=== PATIENT | female | born 1990 | race Two or more races ===

== ENCOUNTER 2016-10-03 10:46 | Emergency (ER) | payer MEDICAID ==
[~2016-10-03] VITALS: Ht 160 cm; Wt 61.7 kg
[2016-10-03] MEDS ORDERED: NKM (11:05)
[2016-10-03 11:15] VITALS: BP 108/66
--- NOTE | 2016-10-03 11:26 | Emergency Room Report ---
History of Present Illness General Chief Complaint: General Complaint Source: Patient Present Illness HPI Patient presents with 2 complaints, evaluation of left arm scab, wound from a fall and a scratch 5 days ago. States it is some minor swelling and she's concerned for infection. Patient also describes some intermittent right lower quadrant discomfort with burning and some radiation down the leg in a sense of fullness. This is been going on for approximately 4 months. She is been seen by [facility] and reportedly had negative pelvic some pelvic ultrasound. No nausea vomiting diarrhea or dysuria reported. Allergies: Coded Allergies: No Known Allergies (Unverified , 10/03/16) Patient History Past Medical History: see triage record Social History: Denies: alcohol use, drug use, smoking Last Menstrual Period: 09/10/2016 Now: No : 0 Para: 0 Immunizations: UTD Reviewed Nursing Documentation: PMH: Agreed Review of Systems Gastrointestinal: Reports: abdominal pain Skin: Reports: rash All Other Systems: negative except mentioned in HPI Physical Exam Vital Signs Date Time Temp Pulse Resp B/P Pulse Ox O2 Delivery O2 Flow Rate FiO2 10/03/16 10:54 99.0 86 16 108/66 100 Room Air Sp02 EP Interpretation: reviewed, normal General Appearance: normal inspection, well appearing, no apparent distress, alert Head: atraumatic Eyes: bilateral eye normal inspection ENT: normal ENT inspection, hearing grossly normal, normal voice Neck: normal inspection, full range of motion, supple, no bony tend Respiratory: normal inspection, lungs clear, normal breath sounds, no respiratory distress, no retraction, no wheezing Cardiovascular #1: regular rate, rhythm, no edema Gastrointestinal: normal inspection, normal bowel sounds, non tender, soft, no guarding, no hernia, other - no obvious hernia noted exam, otherwise normal Genitourinary: no CVA tenderness Musculoskeletal: normal inspection, back normal, normal range of motion Neurologic: normal inspection, alert, responsive, speech normal Psychiatric: normal inspection, judgement/insight normal, mood/affect normal Skin: normal color, no rash, wd healing/no infection noted - small scab on the left elbow, no fluctuance, redness, wamth or drainage Medical Decision Making Diagnostic Impression: Primary Impression: Encounter for generalized patient complaints Additional Impressions: Abdominal pain Wound, open, arm, upper ER Course Well-appearing patient, no sign of infection on examination of the arm, and essentially benign abdominal exam. We'll do a screening urinalysis, urine though I feel appear likely negative. And will provide consultation for free clinics and further followup as well as referral back to [facility] for further study. Urinalysis reviewed, negative, patient discharged to followup with [facility]. Laboratory Tests Test 10/03/16 11:20 Urine Color Yellow Urine Appearance Slightly cloudy Urine pH 7 (4.5-8.0) Urine Specific [place] 1.010 (1.005-1.035) Urine Protein Negative (NEGATIVE) Urine Glucose (UA) Negative (NEGATIVE) Urine Ketones Negative (NEGATIVE) Urine Occult Blood Negative (NEGATIVE) Urine Nitrite Negative (NEGATIVE) Urine Bilirubin Negative (NEGATIVE) Urine Urobilinogen 1 MG/DL (0.0-1.0) H Urine Leukocyte Esterase 1+ (NEGATIVE) H Urine RBC 0-2 /HPF (0 - 2) Urine WBC 0-2 /HPF (0 - 2) Urine Squamous Epithelial Cells Few /LPF (NONE/OCC) Urine Bacteria Few /HPF (NONE) Urine Mucus Moderate /LPF (NONE/OCC) H Urine HCG, Qualitative Negative Reevaluation Time: 11:26 Last Vital Signs Date Time Temp Pulse Resp B/P Pulse Ox O2 Delivery O2 Flow Rate FiO2 10/03/16 10:54 99.0 86 16 108/66 100 Room Air Status: unchanged Disposition: HOME, SELF-CARE Condition: Stable Vikram Delgado MD Oct 03, 2016 11:26
[2016-10-03 11:31] LABS: APPEARANCE,URINE SLIGHTLY CLOUDY; KETONES,URINE NEGATIVE (NEGATIVE); LEUKOCYTE ESTERASE ,URINE 1+ (NEGATIVE); NITRITE,URINE NEGATIVE (NEGATIVE); PH,URINE 7 (4.5-8.0); PROTEIN,URINE NEGATIVE (NEGATIVE); UROBILINOGEN,URINE 1 MG/DL (0.0-1.0)
[2016-10-03 11:44] LABS: BACTERIA,URINE FEW /HPF; MUCUS,URINE MODERATE /LPF (NONE/OCC); RBC,URINE 0-2 /HPF (0 - 2); SQUAMOUS EPITHELIAL CELL,UR FEW /LPF (NONE/OCC); WBC,URINE 0-2 /HPF (0 - 2)
[2016-10-03 12:02] VITALS: BP 108/66
== END 2016-10-03 12:02 | disposition home or self-care (01) ==
LOC: EMR 11:15
DX: R10.9 Unspecified abdominal pain (principal); R21 Rash and other nonspecific skin eruption; S41.102A Unspecified open wound of left upper arm, initial encounter; W19.XXXA Unspecified fall, initial encounter; Y93.9 Activity, unspecified; Y92.9 Unspecified place or not applicable
CPT/HCPCS: 81003; 81025; 99283